=== PATIENT | female | born 1975 | race Caucasian/White ===

== ENCOUNTER 2017-12-08 14:19 | Emergency (ER) | payer MEDICAID ==
[2017-12-08] MEDS: KETOROLAC 30 MG INJ IM (15:00)
== END 2017-12-08 18:25 | disposition home or self-care (01) ==
LOC: FTE 14:19
DX: M25.522 Pain in left elbow (principal); M25.512 Pain in left shoulder; M25.562 Pain in left knee; E11.9 Type 2 diabetes mellitus without complications; Z79.84 Long term (current) use of oral hypoglycemic drugs
CPT/HCPCS: 73030; 73080-LT; 73562-50; 81025; 96372; 99284-25

== ENCOUNTER 2019-01-08 10:16 | Emergency (ER) | payer MEDICAID ==
[2019-01-08] MEDS: KETOROLAC 60 MG INJ IM (11:31)
== END 2019-01-08 11:48 | disposition home or self-care (01) ==
LOC: FTE 11:48
DX: M54.5 Low back pain (principal); E11.9 Type 2 diabetes mellitus without complications; M54.2 Cervicalgia; Z79.84 Long term (current) use of oral hypoglycemic drugs
CPT/HCPCS: 81025; 99283